=== PATIENT | female | born 1955 | race Caucasian/White ===

== ENCOUNTER 2018-01-26 02:10 | Day surgery (SDC) | payer MEDICARE, OTHER ==
[~2018-01-26] VITALS: Ht 168.9 cm; Wt 66.2 kg
[~2018-01-26 02:10] MED LIST: ASPI81TA94 PO; ATR80PT PO; LOSA50TA72 PO; METO25TA23 PO; ROS10 PO; TRILI135PT GT; TURM538C PEG
[2018-01-26 07:39] VITALS: BP 102/67
[2018-01-26] MEDS ORDERED: NORMOSOL R SOLN(*) 1000 ML BAG 1,000 ML IV PRN (08:00)
[2018-01-26] MEDS ORDERED: LIDOCAINE/SOD BICARB 8.4% SYR ID ONE (08:00)
[2018-01-26 10:10] VITALS: BP 91/50
--- NOTE | 2018-01-26 10:13 | Short(Outpt) Discharge Summary ---
Discharge Summary Reason for Hosp/Final Diag: (1) Colon cancer screening Status: Chronic Hospital Course & Plan: Colonoscopy completed without problems. Normal. (2) History of colon polyps Status: Chronic Departure Discharge to: Home, Self Care Discharge Instructions Home Meds Reported Medications Metoprolol Succinate (METOPROLOL SUCCINATE) 25 Mg Tab.er.24h, 0.5 TAB PO QDAY, TAB 01/01/18 Turmeric Root Extract (Turmeric) 538 Mg Capsule, 1 CAP PEG QDAY 06/21/17 Rosuvastatin Calcium (CRESTOR) 10 Mg Tab, 5 MG PO QDAY, #5 TAB 06/21/17 Losartan Potassium (LOSARTAN POTASSIUM) 50 Mg Tablet, 50 MG PO QDAY 06/21/17 Aspirin (ASPIRIN) 81 Mg Tab.chew, 81 MG PO QDAY, TAB.CHEW 01/14/17 Diet: Regular Activity: As Tolerated Special Instructions: Your colonoscopy was completed without problems and your prep was excellent (Good Job!!). Your colonoscopy was normal this time. I recommend that your next colonoscopy be in 5 years due to your previous polyps. GENNA ALMODOVAR MD Jan 26, 2018 10:13
[2018-01-26 10:30] VITALS: BP 98/54
[2018-01-26 11:00] VITALS: BP 112/65
[2018-01-26 11:10] VITALS: BP 115/58
[2018-01-26 11:11] VITALS: BP 109/95
== END 2018-01-26 11:25 | disposition home or self-care (01) ==
LOC: OR 02:10
PROVIDERS: ATTEND Surgery
DX: Z12.11 Encounter for screening for malignant neoplasm of colon (principal); Z86.010 Personal history of colon polyps
CPT/HCPCS: 00812; G0121